=== PATIENT | male | born 1975 | race African-American/Black ===

== ENCOUNTER 2024-01-25 18:42 | Emergency (ER) | payer BC, MEDICAID ==
[~2024-01-25] VITALS: Ht 182.9 cm; Wt 105.0 kg
[2024-01-25 18:47] VITALS: BP 130/70; PULSE 92; RESP 16; O2SAT 98
[2024-01-25 20:33] VITALS: TEMP 98.1
[2024-01-25] MEDS: ACETAMINOPHEN 325MG TABLET PO ONE (20:33)
[2024-01-25] MEDS ORDERED: BO1 TP (21:17)
[2024-01-25] MEDS: BACITRACIN ZINC OINT UDPKT TOP ONE (21:34)
[2024-01-28] MEDS ORDERED: AMOX1TAB16 MT (10:41)
== END 2024-01-25 22:28 | disposition home or self-care (01) ==
LOC: ER 18:42
DX: S90.821A Blister (nonthermal), right foot, initial encounter (principal); X58.XXXA Exposure to other specified factors, initial encounter; Y93.89 Activity, other specified; Y92.89 Other specified places as the place of occurrence of the external cause; Y99.8 Other external cause status
CPT/HCPCS: 99283